=== PATIENT | female | born 1970 | race American Indian/Alaskan Native ===

== ENCOUNTER 2017-05-03 06:30 | Day surgery (SDC) | payer OTHER ==
[2017-05-03] MEDS ORDERED: DIPRIVAN 10 MG/ML IV ONE ×2 (07:37)
[2017-05-03] MEDS ORDERED: NACL 0.9% 1000 ML 1,000 ML IV SCH (08:00)
--- NOTE | 2017-05-03 08:36 | Anesthesia Consultation ---
Anesthesia Consult and Med Hx Date of service: 05/03/17 - Airway Anesthetic Teeth Evaluation: Good ROM Head & Neck: Adequate Mental/Hyoid Distance: Adequate Mallampati Class: Class II Intubation Access Assessment: Probably Good - Pulmonary Exam CTA: Yes - Cardiac Exam Cardiac Exam: RRR - Pre-Operative Health Status ASA Pre-Surgery Classification: ASA2 Proposed Anesthetic Plan: MAC - Pulmonary Hx Smoking: No Hx Respiratory Symptoms: Yes (Hx PE in 2010) - Cardiovascular System Hx Hypertension: No - Gastrointestinal Hx Gastroesophageal Reflux Disease: No - Hematic Hx Anemia: Yes - Additional Comments Anesthesia Medical History Comments: NAC
--- NOTE | 2017-05-03 08:36 | Anesthesia Day of Surgery ---
Anesthesia Day of Surgery - Day of Surgery Patient Examined: Yes Patient H&P Reviewed: Yes Patient is NPO: Yes
--- NOTE | 2017-05-03 09:12 | Short Stay Summary ---
Short Stay Documentation - Allergies and Medications Current Medications: Allergies No Known Allergies Allergy (Verified 05/02/17 10:13) Home Medications Medication Instructions Recorded Confirmed Last Taken Type Iron 325 mg PO DAILY 05/02/17 05/02/17 05/01/17 History Active Medications Sodium Chloride (Nacl 0.9% 1000 Ml) 1,000 mls @ 50 mls/hr IV DIRECT JAYY Last Admin: 05/03/17 07:57 Dose: 50 mls/hr - Brief post op/procedure progress note Date of procedure: 05/03/17 Pre-op diagnosis: 1. Colon cancer screening 2. Iron deficiency anemia Post-op diagnosis: same (1. Internal hemorrhoids 2. Melanosis coli) Procedure: Colonoscopy Anesthesia: MAC Findings: as above Surgeon: KRZYSZTOF BEATTY Estimated blood loss: none Pathology: none Condition: stable - Disposition Condition at discharge: Stable Disposition: DC-01 TO HOME OR SELFCARE Short Stay Discharge Plan Activity: no restrictions Weight Bearing Status: Full Weight Bearing Diet: regular, low salt Follow up with: SHANTA VIGIL MD [Primary Care Provider] - 7 Days
--- NOTE | 2017-05-03 09:35 | Post Anesthesia Evaluation ---
- Post Anesthesia Evaluation Patient Participated: Yes Airway Patent: Yes Stable Respiratory Function: Yes Nausea/Vomiting: No Temp > 96.8F: Yes Pain Manageable: Yes Adequeate Hydration: Yes Anesthesia Complications: No Block Receding Appropriately: Not Applicable Patient on Ventilator: No
[2017-05-03 09:38] VITALS: BP 121/70
== END 2017-05-03 06:31 | disposition home or self-care (01) ==
LOC: GIO 06:30
PROVIDERS: ATTEND Internal Medicine Gastroenterology
DX: D50.0 Iron deficiency anemia secondary to blood loss (chronic) (principal); K64.0 First degree hemorrhoids; K63.89 Other specified diseases of intestine; G43.909 Migraine, unspecified, not intractable, without status migrainosus; Z79.899 Other long term (current) drug therapy; Z72.89 Other problems related to lifestyle; Z98.890 Other specified postprocedural states; Z86.711 Personal history of pulmonary embolism
CPT/HCPCS: 45378; 81025; J2704; J7030